=== PATIENT | female | born 1970 | race Two or more races ===

== ENCOUNTER 2018-07-23 11:06 | Emergency (ER) | payer OTHER ==
[~2018-07-23] VITALS: Ht 172.7 cm; Wt 84.4 kg
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
[2018-07-23] MEDS ORDERED: ONDANSETRON 4 MG TAB.RAPDIS PO ONE (11:30)
[2018-07-23] MEDS ORDERED: MORPHINE SULFATE INJ 2 MG/ML DISP.SYRIN IM ONE (11:30)
[2018-07-23] MEDS ORDERED: KETOROLAC TROMETHAMINE INJ 30 MG/ML VIAL IM ONE (11:30)
[2018-07-23] MEDS ORDERED: ONDANSETRON 4 MG TAB.RAPDIS ONE (11:37)
[2018-07-23] MEDS ORDERED: MORPHINE SULFATE INJ 4 MG/ML DISP.SYRIN ONE (11:37)
--- NOTE | 2018-07-23 12:07 | NUR ---
PATIENT RETURNED FROM RADIOLOGY IN STABLE CONDITION.
[2018-07-23] MEDS ORDERED: KETOROLAC TROMETHAMINE INJ 30 MG/ML VIAL ONE (12:10)
--- NOTE | 2018-07-23 13:06 | NUR ---
Patient discharged to home in stable condition. Written and verbal after care instructions given. Patient verbalizes understanding of instruction.
[2018-07-23 13:07] VITALS: BP 132/78
== END 2018-07-23 13:08 | disposition home or self-care (01) ==
LOC: ER 11:07
DX: S13.8XXA Sprain of joints and ligaments of other parts of neck, initial encounter (principal); S60.222A Contusion of left hand, initial encounter; S20.211A Contusion of right front wall of thorax, initial encounter; Z88.8 Allergy status to other drugs, medicaments and biological substances; Z60.2 Problems related to living alone; V49.49XA Driver injured in collision with other motor vehicles in traffic accident, initial encounter; Y93.89 Activity, other specified; Y92.410 Unspecified street and highway as the place of occurrence of the external cause; Y99.8 Other external cause status
CPT/HCPCS: 71100; 72125; 73130; 84703; 96372 ×2; 99285; A4606; J1885; J2270; Q0162; Z7610